=== PATIENT | female | born 1985 | race Caucasian/White ===

== ENCOUNTER 2016-12-26 16:11 | Emergency (ER) | payer SELFPAY ==
[~2016-12-26] VITALS: Ht 170.2 cm; Wt 68.1 kg
[~2016-12-26 16:11] MED LIST: ACHD5005 PO; AMOX500C2 PO; AMOXICILLAN; CLIN-62 PO; CODE-54 PO; DCS100C PO; FERR-57 PO; FERROUS SULFATE; FRS325T PO; HCA25SU PR; HYDR-757 PO; HYDR1CAP2 PO; HYDR1TAB66 PO; HYDR1TAB8 OP; HYDR30SU3 RC; IBP600T1 PO; IBUP-15 PO; IBUP-1773 PO; LEVO500T69 PO; METR500T PO; NAPR-243 PO; OXC5T PO; PNV1CAPS13 PO; PRD20T PO; PREN1TAB71 PO; PRENATAL; SULF1TAB38 PO; TMSL.4C PO
[2016-12-26] MEDS ORDERED: TETANUS,DIPTH,PERTUSS P/F (BOOSTRIX) 0.5 ML VIAL IM ONE (17:15)
[2016-12-26] MEDS ORDERED: MUPI15CR TP (17:15)
[2016-12-26] MEDS ORDERED: SULF1TAB35 PO (17:15)
[2016-12-26] MEDS ORDERED: PRD10T PO (17:15)
--- NOTE | 2016-12-26 17:15 | ED Integumentary General ---
General Chief Complaint: Bite-Animal/Human/Insect Stated Complaint: SPIDER BITE Nursing Triage Note: c/o spider bite to R foot, 2 days ago Source: patient History of Present Illness Time seen by provider: 17:07 Initial Comments PT THINKS SHE WAS BITTEN/STUNG BY SOMETHING ON HER RIGHT FOOT 2 DAYS AGO STATES SHE JUST MOVED INTO A NEW HOUSE, MOVING BOXES, ETC. STATES SHE DID NOT SEE OR FEEL ANYTHING BITE HER, BUT NOTICED A PIMPLE ON HER FOOT BETWEEN HER FIRST AND SECOND TOES AND POPPED IT SINCE THEN SHE HAS HAD INCREASED PAIN REDNESS AND SWELLING TO RIGHT FOOT NO DRAINAGE NO KNOWN INJURY NO PARESTHESIAS OR MOTOR DEFICITS NO FEVER NO HISTORY OF SIMILAR PCP: DR. BEARDEN Allergies and Home Medications Allergies Coded Allergies: No Known Drug Allergies (Verified , 04/03/09) Home Medications Mupirocin Calcium 15 Gm Cream..g., 15 GM TP BID, #22 Prescribed by: ALICJA CASTANEDA on 12/26/165 Prednisone 10 Mg Tab, 40 MG PO DAILY, #12 Prescribed by: ALICJA CASTANEDA on 12/26/165 Sulfamethoxazole/Trimethoprim 1 Each Tablet, 1 EACH PO BID, #20 Prescribed by: ALICJA CASTANEDA on 12/26/165 Constitutional: no symptoms reported EENTM: no symptoms reported Respiratory: no symptoms reported Cardiovascular: no symptoms reported Gastrointestinal: no symptoms reported Genitourinary: no symptoms reported Musculoskeletal: see HPI Skin: see HPI Psychiatric/Neurological: No Symptoms Reported Endocrine: No Symptoms Reported Hematologic/Lymphatic: No Symptoms Reported Past Qeqzgvj-Auvftm-Arwgwv Hx Patient Social History Alcohol Use: Denies Use Recreational Drug Use: Yes (HX METH/MARIJUANA ) Smoking Status: Current Everyday Smoker Type Used: Cigarettes Recent Foreign Travel: No Contact w/Someone Who Travel: No Recent Infectious Disease Expo: No Recent Hopitalizations: No Immunizations Up To Date Tetanus Booster (TDap): Less than 5yrs PED Vaccines UTD: No Seasonal Allergies Seasonal Allergies: No Surgeries HX Surgeries: Yes (rectal abscess) Surgeries: Rectal Respiratory Hx Respiratory Disorders: Yes Respiratory Disorders: Pneumonia Cardiovascular Hx Cardiac Disorders: No Neurological Hx Neurological Disorders: Yes (CONCUSSION AT 5YRS) Neurological Disorders: Concussion Reproductive System Hx Reproductive Disorders: No Sexually Transmitted Disease: No HIV/AIDS: No Female Reproductive Disorders: Denies Genitourinary Hx Genitourinary Disorders: Yes (KIDNEY STONE 12/2011) Genitourinary Disorders: Kidney Stones Gastrointestinal Hx Gastrointestinal Disorders: No Musculoskeletal Hx Musculoskeletal Disorders: Yes (PELVIC AT 16YRS) Musculoskeletal Disorders: Fractures Endocrine Hx Endocrine Disorders: No HEENT HX ENT Disorders: No Loss of Vision: Denies Hearing Impairment: Denies Cancer Hx Cancer: No Psychosocial Hx Psychiatric Problems: No Integumentary HX Skin/Integumentary Disorder: No Blood Transfusions Hx Blood Disorders: No Adverse Reaction to a Blood Tr: No Physical Exam Vital Signs Capillary Refill : Less Than 3 Seconds General Appearance: WD/WN, no apparent distress Extremities: normal range of motion, other (RIGHT FOOT WITH BLISTER BETWEEN FIRST AND SECOND TOES, WITH SURROUNDING ERYTHEMA, INDURATION AND TENDERNESS TO MID FOOT. NO DRAINAGE. 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 ) Progress/Results/Core Measures Results/Orders My Orders Orders - ALICJA CASTANEDA DO Dipht,Pertuss(Acell),Tet Adult (Boostrix (12/26/16 17:15) Vaccine Administration Single (12/26/16 ) Vital Signs/I&O Blood Pressure Mean: 80 Departure Impression Impression: Primary Impression: Cellulitis of right foot Additional Impression: Ephxgithfa-tmpyonneb-vhqdcze (DPT) vaccination administered at current visit Disposition: 01 HOME, SELF-CARE Condition: Stable Departure-Patient Inst. Referrals: ADRIANA BEARDEN DO (PCP) Primary Care Physician Patient Instructions: Cellulitis (Skin Infection), Adult (DC), Diphtheria and Tetanus Toxoids, and Acellular Pertussis Vaccine, Methicillin-Resistant Staphylococcus aureus (MRSA) Add. Discharge Instructions: SOAK IN WARM EPSOM SALTS OR WARM SOAPY WATER 2-3 TIMES A DAY, THEN APPLY ICE TO AREA AT 20 MINUTE INTERVALS ELEVATE FOOT MUCH POSSIBLE FOLLOW UP WITH YOUR DR IN 2-3 DAYS RETURN TO ER IF WORSE All discharge instructions reviewed with patient and/or family. Voiced understanding. Scripts Prednisone (Prednisone) 10 Mg Tab 40 MG PO DAILY, #12 TAB Prov: ALICJA CASTANEDA DO 12/26/16 Mupirocin Calcium (Bactroban) 15 Gm Cream..g. 15 GM TP BID, #22 TUBE Prov: ALICJA CASTANEDA DO 12/26/16 Sulfamethoxazole/Trimethoprim (Bactrim Ds Tablet) 1 Each Tablet 1 EACH PO BID, #20 TAB Prov: ALICJA CASTANEDA DO 12/26/16 ALICJA CASTANEDA DO Dec 26, 2016 17:15
[2016-12-26 17:19] VITALS: BP 108/66
--- OUTSIDE RECORDS SUMMARY | 2016-12-29 09:48 | XMS REPORT | Continuity of Care Document ---
Author Author [facility] Organization [facility] Address Unknown Phone Unavailable Allergies Active Description Code Type Severity Reaction Onset Reported/Identified Relationship to Patient Clinical Status Yes No Known Drug Allergies [id number] Drug Allergy Unknown N/ A 04/03/2009 Medications Problems Date Dx Coded Attending Type Code Diagnosis Diagnosed By 12/27/2011 Ot 590.80 PYELONEPHRITIS NOS 12/27/2011 Ot 789.09 ABDOMINAL PAIN, OTHER SPECIFIED SITE 06/09/2012 Ot 640.03 THREATEN ABORT-ANTEPART 11/08/2012 YOLETTE LOWE, JOSÉ MANUEL Kelly Ot 455.3 EXT HEMORRHOID W/O COMPL 11/08/2012 YOLETTE LOWE, JOSÉ MANUEL Kelly Ot 671.83 VENOUS COMPL NEC-ANTEPAR 11/13/2012 TIANA LOWE, JUDY Meredith Ot 566 ANAL RECTAL ABSCESS 11/13/2012 TIANA LOWE, JUDY Meredith Ot 646.83 PREG COMPL NEC-ANTEPART 01/11/2013 JAMESON MACEDO DO Ot 649.01 TOBACCO USE DISORDER COMP PREG/CHILDBIRT 01/11/2013 JAMESON MACEDO DO Ot V27.0 DELIVER-SINGLE LIVEBORN 09/30/2013 WAYNE REIS CLOCK ASSEMBLER Ot 724.4 LUMBOSACRAL NEURITIS NOS 09/30/2013 WAYNE REIS CLOCK ASSEMBLER Ot 845.00 SPRAIN OF ANKLE NOS 09/30/2013 WAYNE REIS CLOCK ASSEMBLER Ot 959.7 LOWER LEG INJURY NOS 09/30/2013 WAYNE REIS CLOCK ASSEMBLER Ot E000.8 OTHER EXTERNAL CAUSE STATUS 09/30/2013 WAYNE REIS CLOCK ASSEMBLER Ot E927.0 OVEREXERTION FROM SUDDEN STRENUOUS MOVEM 11/21/2013 ADRIANA BEARDEN DO Ot 724.2 LUMBAGO 11/21/2013 ADRIANA BEARDEN DO Ot 729.2 NEURALGIA/NEURITIS NOS 11/21/2013 ADRIANA BEARDEN DO Ot V57.1 PHYSICAL THERAPY NEC Procedures Code Description Performed By Performed On 49.01 INCIS PERIANAL ABSCESS 11/11/2012 73.4 MEDICAL INDUCTION LABOR 01/10/2013 73.6 EPISIOTOMY 2012 Results Encounters ACCT No. Visit Date/Time Discharge Status Pt. Type Provider Facility Loc./Unit Complaint [id number] 12/26/2016 16:14:00 2016 17:18:00 DIS Emergency LEONEL DO ALICJA K [facility] ER SPIDER BITE [id number] 11/03/2013 09:30:00 2013 14:39:00 DIS Outpatient ADRIANA BEARDEN DO [facility] REHAB LOW BACK PAIN L LEG RADICULOPATHY [id number] 09/30/2013 10:14:00 2013 11:12:00 DIS Emergency WAYNE REIS CLOCK ASSEMBLER [facility] ER L ANKLE PAIN [id number] 01/10/2013 06:12:00 2012 16:40:00 DIS Inpatient JAMESON MACEDO DO [facility] WS INDUCTION [id number] 11/11/2012 13:49:00 2012 20:05:00 DIS Inpatient TIANA LOWE, JUDY Meredith [facility] SURGICAL RECTAL ABSCESS [id number] 11/08/2012 06:20:00 2012 08:11:00 DIS Emergency YOLETTE LOWE, JOSÉ MANUEL Kelyl [facility] ER INTERNAL EXTERNAL HEMORRHOIDS/6MTHS PREG [id number] 12/26/2016 16:14:00 Document Registration [id number] 06/09/2012 15:49:00 Document Registration [id number] 12/27/2011 07:47:00 Document Registration
== END 2016-12-26 17:18 | disposition home or self-care (01) ==
LOC: EDUNIT# 16:11 → ER 16:14
DX: Z23 Encounter for immunization; F17.210 Nicotine dependence, cigarettes, uncomplicated; S90.861A Insect bite (nonvenomous), right foot, initial encounter; W57.XXXA Bitten or stung by nonvenomous insect and other nonvenomous arthropods, initial encounter; L03.115 Cellulitis of right lower limb
CPT/HCPCS: 90471; 90715; 99284

== ENCOUNTER → 2017-12-21 | Outpatient (CLI) | payer MEDICAID ==
[~2017-12-21] MED LIST changes: +MUPI15CR TP; +PRD10T PO; +SULF1TAB35 PO
--- NOTE | 2017-12-21 13:32 | Diagnostic Imaging Report ---
INDICATION: 20 weeks gestation of . TECHNIQUE: Multiple real-time grayscale images were obtained over the gravid uterus. COMPARISON: There are no prior studies available for comparison. FINDINGS: There is single live fetus in breech presentation. heart motion was noted and a rate of 143 BPM was recorded. There were no abnormalities identified but the spine was not well imaged due to lie. I would recommend that a short-term (2-4 weeks) followup exam be performed for further study. The growth parameters are fairly uniform. The placenta is anterior and there is no previa. The amniotic fluid volume is within normal limits. The cervix was visualized and measures 3.4 cm in length. IMPRESSION: 1. There is a single live fetus at approximately 22 weeks 1 day gestation +/-2 weeks. The EDC is April 25, 2018. 2. There were no abnormalities identified. However, the spine was not well visualized. Recommendations as above. 3. The growth parameters are fairly uniform. Biometrical measurements are as follows: Biparietal 5.3 cm, age 22 weeks 1 days. Head circumference 19.8 cm, age 22 weeks 1 days. Abdominal circumference 16.4 cm, age 21 weeks 4 days. Femur length 3.8 cm, age 22 weeks 2 days. Sonographic estimate age: 22 weeks 1 days. Sonographic estimated date of delivery: 04/25/18. Estimated Weight: 453 gm (+/- 66 gm). LMP percentile: 49%. heart rate: 143 beats per minute. number: 1 of 1. Dictated by: Dictated on workstation # [id number]
== END ==
LOC: RAD 11:53
PROVIDERS: ATTEND Obstetrics & Gynecology
DX: Z34.92 Encounter for supervision of normal pregnancy, unspecified, second trimester (principal); Z3A.20 20 weeks gestation of pregnancy
CPT/HCPCS: 76805

== ENCOUNTER 2018-04-07 13:59 | Inpatient (IN) | payer MEDICAID ==
[~2018-04-07] VITALS: Ht 170.2 cm; Wt 81.6 kg
--- OUTSIDE RECORDS SUMMARY | 2018-04-07 14:05 | XMS REPORT | Continuity of Care Document ---
Author Author [facility] Organization [facility] Address Unknown Phone Unavailable Care Team Providers Care Cassandra Developer Name Role Phone ADRIANA BEARDEN DO PP Insurance Providers Payer Name Policy Number Subscriber Name Relationship [facility] [id number] Salma Ho 01 Self / Same As Patient Advance Directives Directive Response Recorded Date Advance Directives N 11/11/12 8:41pm Health Care Power of Filling Carrier N 11/11/12 8:41pm Organ Donor Y 11/11/12 8:41pm Problems No Known Problems or Medical conditions. Family History History Response Recorded Date/Time Hx Family Cancer N MATERNAL LUNG,KIDNEYS, ESOPHAGEAL,LIVER, SKIN, COLON 11/11/12 8:47pm Hx Family Lung Cancer Y 11/11/12 8:47pm Hx Family Colorectal Cancer Y 11/11/12 8: 47pm Social History History Response Recorded Date/Time Alcohol Use Denies Use 11/11/12 8:51pm Recreational Drug Use N 11/11/12 8:51pm Recent Foreign Travel N 11/11/12 8:51pm Recent Infectious Disease Exposure N 8:51pm Hospitalization with Isolation Denies 9:05pm Allergies, Adverse Reactions, Alerts Allergen Type Severity Reaction Last Updated No Known Drug Allergies 04/03/09 Medications Medication Dose Units Route Sig Qty Days Oxycodone HCl (Oxyir) 5 Mg PO Q4H PRN 30 Metronidazole (Flagyl 500 Mg) 500 Mg PO TID 7 Clindamycin HCl (Cleocin Cap) 150 Mg PO TID 7 Ferrous Sulfate 325 Mg PO DAILY Hydrocortisone Acetate (Anusol-Hc Supp) 25 Mg PA BID Docusate Sodium (Colace) 200 Mg PO DAILY PRN Pnv Comb.no58/Iron Bisgly/Fa ( Capsule) 1 Cap PO DAILY Hydrocodone Bit/Acetaminophen (Hydrocodon-Acetaminophen 5-500) 5 - 500 Mg PO Q6H PRN Amoxicillin 500 Mg PO TID Docusate Sodium (Colace) 100 Mg PO BID 60 Acetaminophen/Hydrocodone Bitart (Hydrocodone-Apap 5-500 Cap) 1 Each PO Q6HR PRN 8 [Ferrous Sulfate] [Amoxicillan] [] Hydrocodone Bitartrate/Ibuprofen (Vicoprofen 200-7.5 Mg Tab) 1 - 2 Each OP Q 4 - 6 HRS PRN 20 Levofloxacin (Levaquin 500 Mg) 1 Each PO DAILY 10 Tamsulosin HCl (Flomax) 1 Cap PO DAILY 10 Ibuprofen (Advil) 400 - 800 Mg PO Q4HR PRN Response Recorded Date/Time Status not known Unknown Results Test Date Result Interp. Ref. Range Acetaminophen Screen April 03, 2009 9:00am NEGATIVE - Alanine Aminotransferase (ALT/SGPT) November 11, 2012 1:02pm 35 U/L N 30-65 Albumin November 11, 2012 1:02pm 2.4 G/DL L 3.4-5.0 Alkaline Phosphatase November 11, 2012 1:02pm 186 U/L H 50-136 Amylase Level December 27, 2011 8:17am 43 U/ L N 25-115 Aspartate Amino Transf (AST/SGOT) November 11, 2012 1:02pm 23 U/L N 15-37 BUN/Creatinine Ratio November 11, 2012 1:02pm 12 - Basophils # (Auto) November 11, 2012 1:02pm 0.0 10^3/uL N 0.0-0.1 Basophils (%) (Auto) November 11, 2012 1:02pm 0 % N 0-10 Blood Urea Nitrogen November 11, 2012 1:02pm 7 MG/DL N 7-18 Calcium Level November 11, 2012 1:02pm 7.9 MG /DL L 8.5-10.1 Carbon Dioxide Level November 11, 2012 1:02pm 25 MMOL/L N 21-32 Chloride Level November 11, 2012 1:02pm 103 MMOL/L N 101-110 Creatinine November 11, 2012 1:02pm 0.6 MG/ DL N 0.6-1.3 Eosinophils # (Auto) November 11, 2012 1:02pm 0.2 10^3/uL N 0.0-0.3 Eosinophils (%) (Auto) November 11, 2012 1:02pm 1 % N 0-10 Glucose Level November 11, 2012 1:02pm 84 MG/ DL N 74-106 Hematocrit November 11, 2012 1:02pm 29 % L 35-52 Hemoglobin November 11, 2012 1:02pm 9.9 G/DL L 11.5-16.0 Human Chorionic Gonadotropin, Quant June 09, 2012 4: 35pm [id number] MIU/ML H - 6 Lipase December 27, 2011 8:17am 156 U/L N 73-393 Lymphocytes # (Auto) November 11, 2012 1:02pm 1.5 X 10^3 N 1.0-4.0 Lymphocytes (%) (Auto) November 11, 2012 1:02pm 11 % L 12-44 Mean Corpuscular Hemoglobin November 11, 2012 1:02pm 30 PG N 25-34 Mean Corpuscular Hemoglobin Concent November 11, 2012 1:02pm 34 G/DL N 32-36 Mean Corpuscular Volume November 11, 2012 1:02pm 89 FL N 80-99 Mean Platelet Volume November 11, 2012 1:02pm 8.9 FL N 7.4-10.4 Monocytes # (Auto) November 11, 2012 1:02pm 1.3 X 10^3 H 0.0-1.0 Monocytes (%) (Auto) November 11, 2012 1:02pm 9 % N 0-12 Neutrophils # (Auto) November 11, 2012 1:02pm 10.7 X 10^3 H 1.8-7.8 Neutrophils (%) (Auto) November 11, 2012 1:02pm 78 % H 42-75 Platelet Count November 11, 2012 1:02pm 328 10^3/uL N 130-400 Potassium Level November 11, 2012 1:02pm 3.5 MMOL/L L 3.6-5.0 Red Blood Count November 11, 2012 1:02pm 3.27 10^6/uL L 4.35-5.85 Red Cell Distribution Width November 11, 2012 1:02pm 12.3 % N 10.0-14.5 Sodium Level November 11, 2012 1:02pm 136 MMOL/L N 135-145 Total Bilirubin November 11, 2012 1:02pm 0.2 MG/DL N 0.0-1.0 Total Protein November 11, 2012 1:02pm 6.5 G/ DL N 6.4-8.2 Ur Tricyclic Antidepressants Screen June 09, 2012 4: 30pm NEGATIVE - Urine Amphetamines Screen June 09, 2012 4:30pm NEGATIVE - Urine Bacteria November 08, 2012 7:42am FEW / HPF H - Urine Barbiturates Screen June 09, 2012 4:30pm NEGATIVE - Urine Benzodiazepines Screen June 09, 2012 4:30pm NEGATIVE - Urine Bilirubin November 08, 2012 7:42am NEGATIVE - Urine Casts November 08, 2012 7:42am NONE / LPF - Urine Clarity November 08, 2012 7:42am CLEAR - Urine Cocaine Screen June 09, 2012 4:30pm NEGATIVE - Urine Color November 08, 2012 7:42am YELLOW - Urine Crystals November 08, 2012 7:42am NONE /LPF - Urine Culture Indicated November 08, 2012 7:42am YES - Urine Glucose (UA) November 08, 2012 7:42am NEGATIVE - Urine Ketones November 08, 2012 7:42am NEGATIVE - Urine Leukocyte Esterase November 08, 2012 7:42am 1+ H - Urine Methamphetamines Screen June 09, 2012 4:30pm NEGATIVE - Urine Mucus November 08, 2012 7:42am NEGATIVE /LPF - Urine Nitrite November 08, 2012 7:42am NEGATIVE - Urine Opiates Screen June 09, 2012 4:30pm NEGATIVE - Urine Phencyclidine Screen June 09, 2012 4:30pm NEGATIVE - Urine Test December 27, 2011 7:59am NEGATIVE - Urine Propoxyphene Screen June 09, 2012 4:30pm NEGATIVE - Urine Protein November 08, 2012 7:42am NEGATIVE - Urine RBC November 08, 2012 7:42am NONE /HPF - Urine Specific [place] November 08, 2012 7:42am 1.015 L - Urine Squamous Epithelial Cells November 08, 2012 7:42am 2-5 /HPF - Urine Urobilinogen November 08, 2012 7:42am NORMAL MG/DL - Urine WBC November 08, 2012 7:42am 5-10 /HPF H - Urine pH November 08, 2012 7:42am 6.5 - White Blood Count November 11, 2012 1:02pm 13.6 10^3/uL H 4.3-11.0 Estimat Glomerular Filtration Rate November 11, 2012 1:02pm > 60 - Urine Oxycodone Screen June 09, 2012 4:30pm NEGATIVE - Urine Methadone Screen June 09, 2012 4:30pm NEGATIVE - Urine Cannabinoids Screen June 09, 2012 4:30pm NEGATIVE - Urine Buprenorphine June 09, 2012 4:30pm NEGATIVE - Urine RBC (Auto) November 08, 2012 7:42am NEGATIVE - Procedures Procedure Code Date REPAIR OB LACERATION NEC 75.69 04/03/09 Blood Culture 12/27/11 Urine Culture 11/08/12 Gram Stain 09/13/10 Encounters Encounter Location Date/Time Discharged Inpatient [facility] 1:49pm Registered Emergency Room [facility] 11/08/12 6:20am Departed Emergency Room [facility] 09/06 3:49pm
--- OUTSIDE RECORDS SUMMARY | 2018-04-07 14:05 | XMS REPORT | Continuity of Care Document ---
Author Author [facility] Organization [facility] Address Unknown Phone Unavailable Care Team Providers Care Beauty Sales Advisor Name Role Phone ADRIANA BEARDEN DO PP Insurance Providers Payer Name Policy Number Subscriber Name Relationship [facility] [id number] Salma Ho 01 Self / Same As Patient Advance Directives Directive Response Recorded Date Advance Directives N 01/10/13 6:28am Health Care Power of Internal Medicine Doctor N 11/11/12 8:41pm Organ Donor Y 01/10/13 6:28am Problems No Known Problems or Medical conditions. Family History History Response Recorded Date/Time Hx Family Cancer N MATERNAL LUNG,KIDNEYS, ESOPHAGEAL,LIVER, SKIN, COLON 01/10/13 6:32am Hx Family Lung Cancer Y 01/10/13 6:32am Hx Family Colorectal Cancer Y 01/10/13 6: 32am Hx Family Cardiac Disorders Y MATERNAL AND PATERNAL FAMILIES 01/10/13 6:32am Hx Family Hypertension Y 01/10/13 6:32am Hx Family Myocardial Infarction Y 6:32am Social History History Response Recorded Date/Time Alcohol Use Denies Use 01/11/13 11:17am Recreational Drug Use N 01/11/13 11:17am Recent Foreign Travel N 01/11/13 11:17am Recent Infectious Disease Exposure N 11:17am Hospitalization with Isolation Denies 7:04pm Sexually Transmitted Disease N 01/11/13 11:17am HIV/AIDS N 01/11/13 11:17am Allergies, Adverse Reactions, Alerts Allergen Type Severity Reaction Last Updated No Known Drug Allergies 04/03/09 Medications Medication Dose Units Route Sig Qty Days Acetaminophen/Hydrocodone Bitart (Lorcet 5/325 Mg) 1 Tab PO Q4H PRN 15 Ferrous Sulfate (Feosol Tab) 325 Mg PO DAILY@08 60 Ibuprofen (Motrin) 600 Mg PO Q6H 40 Vit/Fe Fumarate/Fa ( Vitamin Tablet) 1 Each PO DAILY Ferrous Sulfate 325 Mg PO DAILY Oxycodone HCl (Oxyir) 5 Mg PO Q4H PRN 30 Metronidazole (Flagyl 500 Mg) 500 Mg PO TID 7 Clindamycin HCl (Cleocin Cap) 150 Mg PO TID 7 Hydrocortisone Acetate (Anusol-Hc Supp) 25 Mg AL BID Docusate Sodium (Colace) 200 Mg PO [...] 400 - 800 Mg PO Q4HR PRN Immunizations Name Given Type MMR 01/11/13 A DTaP 01/11/13 A Response Recorded Date/Time Status not known Unknown [...] Gonadotropin, Quant June 09, 2012 4: 35pm [id number] MIU/ML H - 6 Lipase December 27, [...] 2012 4:30pm NEGATIVE - Urine Bacteria November 11, 2012 2:09pm FEW / HPF H - Urine Barbiturates Screen June 09, 2012 4:30pm NEGATIVE - Urine Benzodiazepines Screen June 09, 2012 4:30pm NEGATIVE - Urine Bilirubin November 11, 2012 2:09pm NEGATIVE - Urine Casts November 11, 2012 2:09pm NONE / LPF - Urine Clarity November 11, 2012 2:09pm CLEAR - Urine Cocaine Screen June 09, 2012 4:30pm NEGATIVE - Urine Color November 11, 2012 2:09pm YELLOW - Urine Crystals November 11, 2012 2:09pm NONE /LPF - Urine Culture Indicated November 11, 2012 2:09pm NO - Urine Glucose (UA) November 11, 2012 2:09pm NEGATIVE - Urine Ketones November 11, 2012 2:09pm 3+ H - Urine Leukocyte Esterase November 11, 2012 2:09pm 1+ H - Urine Methamphetamines Screen June 09, 2012 4:30pm NEGATIVE - Urine Mucus November 11, 2012 2:09pm NEGATIVE /LPF - Urine Nitrite November 11, 2012 2:09pm NEGATIVE - Urine Opiates Screen June 09, 2012 4:30pm NEGATIVE - Urine Phencyclidine Screen June 09, 2012 4:30pm NEGATIVE - Urine Test December 27, 2011 7:59am NEGATIVE - Urine Propoxyphene Screen June 09, 2012 4:30pm NEGATIVE - Urine Protein November 11, 2012 2:09pm NEGATIVE - Urine RBC November 11, 2012 2:09pm NONE /HPF - Urine Specific [place] November 11, 2012 2:09pm 1.015 L - Urine Squamous Epithelial Cells November 11, 2012 2:09pm >50 /HPF H - Urine Urobilinogen November 11, 2012 2:09pm NORMAL MG/DL - Urine WBC November 11, 2012 2:09pm 10-25 / HPF H - Urine pH November 11, 2012 2:09pm 6.5 - White Blood Count November 11, 2012 1:02pm 13.6 10^3/uL H 4.3-11.0 Estimat Glomerular Filtration Rate November 11, 2012 1:02pm > 60 - Urine Oxycodone Screen June 09, 2012 4:30pm NEGATIVE - Urine Methadone Screen June 09, 2012 4:30pm NEGATIVE - Urine Cannabinoids Screen June 09, 2012 4:30pm NEGATIVE - Urine Buprenorphine June 09, 2012 4:30pm NEGATIVE - Urine RBC (Auto) November 11, 2012 2:09pm NEGATIVE - Procedures Procedure Code Date REPAIR OB LACERATION NEC 75.69 04/03/09 INCIS PERIANAL ABSCESS 49.01 11/11/12 Blood Culture 12/27/11 MRSA Screen 11/11/12 Urine Culture 11/08/12 Gram Stain 11/11/12 Encounters Encounter Location Date/Time Admitted Inpatient [facility] 6:12am Discharged Inpatient [facility] 1:49pm Registered Emergency Room [facility] 11/08/12 6:20am Departed Emergency Room [facility] 09/06 3:49pm
--- OUTSIDE RECORDS SUMMARY | 2018-04-07 14:05 | XMS REPORT | Continuity of Care Document ---
Author Author [facility] Organization [facility] Address Unknown Phone Unavailable Care Team Providers Care Transmission Line Engineer Name Role Phone ADRIANA BEARDEN DO PP Insurance Providers Payer Name Policy Number Subscriber Name Relationship [facility] [id number] Salma Ho 01 Self / Same As Patient Advance Directives Directive Response Recorded Date Advance Directives N 01/10/13 6:28am Health Care Power of Supply Chain Consultant N 11/11/12 8:41pm Organ Donor Y 01/10/13 [...] 7 Hydrocortisone Acetate (Anusol-Hc Supp) 25 Mg SC BID Docusate Sodium (Colace) 200 Mg PO [...] Recorded Date/Time Status not known Unknown Results No Known Relevant Diagnostic Tests, Laboratory Data and/or Discharge Summary. Procedures Procedure Code Date REPAIR OB LACERATION NEC 75.69 04/03/09 INCIS PERIANAL ABSCESS 49.01 11/11/12 EPISIOTOMY 73.6 01/10/13 MEDICAL INDUCTION LABOR 73.4 01/10/13 Encounters Encounter Location Date/Time Discharged Inpatient [facility] 6:12am Departed Emergency Room [facility] 6:20am
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
[2018-04-07 14:27] LABS: MEAN PLATELET VOLUME 10.1 FL (7.4-10.4); RED BLOOD COUNT 3.94 10^6/uL (4.35-5.85); RED CELL DISTRIBUTION WIDTH 13.3 % (10.0-14.5); WHITE BLOOD COUNT 8.8 10^3/uL (4.3-11.0)
[2018-04-07] MEDS ORDERED: fentaNYL INJECTION 100 MCG/2 ML AMP ONE ×3 (14:58→17:46)
[2018-04-07] MEDS ORDERED: CATHETER FLUSH 10 ML SYR IV PRN ×2 (15:00→17:00)
[2018-04-07] MEDS ORDERED: fentaNYL INJECTION 100 MCG/2 ML AMP IVP ONE ×2 (15:00→18:15)
[2018-04-07] MEDS ORDERED: IOHEXOL 350 MG/ML 100 ML (OMNIPAQUE 350) VIAL IV ONE (15:00)
[2018-04-07] MEDS ORDERED: NS 250 ML (IVPB) BAG IV ONE (15:00)
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
[2018-04-07 15:02] LABS: ALANINE AMINOTRANSFERASE 18 U/L (0-55); ALKALINE PHOSPHATASE 243 U/L (40-136); BILIRUBIN,DIRECT 0.1 MG/DL (0.0-0.3); BILIRUBIN,INDIRECT 0.3 MG/DL; BILIRUBIN,TOTAL 0.4 MG/DL (0.1-1.0); BUN/CREATININE RATIO 11; CALCIUM 8.9 MG/DL (8.5-10.1); CARBON DIOXIDE 17 MMOL/L (21-32); CHLORIDE 107 MMOL/L (98-107); CREATININE SERUM 0.71 MG/DL (0.60-1.30); GFR ESTIMATED > 60; GLUCOSE 106 MG/DL (70-105); SODIUM 136 MMOL/L (135-145)
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
[2018-04-07 15:11] LABS: POTASSIUM 4.4 MMOL/L (3.6-5.0)
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
[2018-04-07 15:18] VITALS: BP 139/78
[2018-04-07 15:26] LABS: ALBUMIN 3.6 GM/DL (3.2-4.5)
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
[2018-04-07 15:40] VITALS: BP 136/83
[2018-04-07 15:46] LABS: BILIRUBIN,URINE NEGATIVE (NEGATIVE); CLARITY,URINE SLIGHTLY CLOUDY; COLOR,URINE YELLOW; GLUCOSE, URINE (UA) NEGATIVE (NEGATIVE); KETONES,URINE NEGATIVE (NEGATIVE); LEUKOCYTE ESTERASE ,URINE NEGATIVE (NEGATIVE); NITRITE,URINE NEGATIVE (NEGATIVE); PH,URINE 7 (5-9); PROTEIN,URINE 3+ (NEGATIVE); UROBILINOGEN,URINE NORMAL (NORMAL)
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
[2018-04-07 15:53] LABS: BACTERIA,URINE TRACE /HPF; RBC,URINE >100 /HPF; SQUAMOUS EPITHELIAL CELL,UR 0-2 /HPF
[2018-04-07] MEDS ORDERED: NS IV 1000 ML 1,000 ML IV SCH (15:56)
[2018-04-07] MEDS ORDERED: NS IV 1000 ML 2,449.41 ML IV ONE (16:00)
[2018-04-07] MEDS ORDERED: ceFAZolin 2 GM IV Premixed 50 ML ONE (16:00)
[2018-04-07] MEDS ORDERED: CITRIC ACID/SOB CIT (BICITRA) 30 ML UDC ONE (16:00)
[2018-04-07] MEDS ORDERED: FAMOTIDINE 20MG/2ML IV (PEPCID) ONE (16:00)
[2018-04-07] MEDS ORDERED: METOCLOPRAMIDE INJ 10 MG/2 ML (REGLAN) ONE (16:00)
[2018-04-07 16:04] VITALS: BP 134/71
[2018-04-07] MEDS ORDERED: SEVOFLURANE (ULTANE) 15 ML INHAL SOLN ONE ×5 (16:18→17:58)
[2018-04-07] MEDS ORDERED: proPOfol 200 MG/20 ML (DIPRIVAN) VIAL IV ONE ×2 (16:18→17:18)
[2018-04-07] MEDS ORDERED: LIDOCAINE PF 2% 5 ML (XYLOCAINE) VIAL ONE (16:18)
[2018-04-07] MEDS ORDERED: SUCCINYLCHOLINE INJ 100 MG/5 ML SYR ONE (16:18)
[2018-04-07] MEDS ORDERED: D5 LR IV SOLUTION 1,000 ML IV SCH ×2 (16:55→17:29)
[2018-04-07] MEDS ORDERED: LACTATED RINGERS 1,000 ML IV PRN (16:59)
[2018-04-07] MEDS ORDERED: METOCLOPRAMIDE INJ 10 MG/2 ML (REGLAN) IV ONE (17:00)
[2018-04-07] MEDS ORDERED: CITRIC ACID/SOB CIT (BICITRA) 30 ML UDC PO ONE (17:00)
[2018-04-07] MEDS ORDERED: ROCURONIUM 10 MG/ML 5 ML SYRINGE IV ONE (17:03)
[2018-04-07] MEDS ORDERED: PHENYLEPHRINE 100 MCG/ML 10 ML (ANESTHESIA) SYR ONE (17:03)
[2018-04-07] MEDS ORDERED: ceFAZolin 2 GM IV Premixed 50 ML IV ONE (17:15)
--- NOTE | 2018-04-07 17:28 | Cesarean Section Operative ---
Procedure Procedure Note Pre-operative Diagnosis: Salma Gonzales is a 33 /Para 3 / 2, Gestational Age 37 2/7 weeks, heartrate abnormality, placental abruption Post-operative Diagnosis: same [] Procedure: [low transverse section Physician: JAMESON MACEDO Client Support Analyst: Alona Horton APRN Estimated blood loss: [] mL Disposition: [] Findings: Viable [] , Apgars [], weight [], intact placenta, 3vc, normal appearing uterus, tubes, and ovaries. Indications:Salma Gonzales is a (33 /Para 3 / 2,Gestational Age (wks) presenting for []. Procedure Details: The patient was seen in pre-op and the procedure was discussed with the patient in full, including the risks, benefits, and alternatives. All questions were answered. The patient was taken to the operating room and a time out was performed, verifying patient and procedure. After spinal anesthesia was placed by our anesthesia colleagues, the patient was placed in the dorsal supine with leftward tilt for uterine displacement.~ Her abdomen was then prepped and draped in the typical sterile fashion. A Pfannenstiel skin incision was made using a scalpel and carried down through the underlying fascia. The fascia was incised in the midline and tented up using Thaddeus clamps. On both the inferior and superior fascia side the rectus muscle was dissected off bluntly and sharply using Mariano scissors. The peritoneum was identified and entered bluntly in the midline. This was then stretched laterally using manual strength. After entering the abdominal cavity and confirming lack of intraperitoneal adhesions, a large Sumit retractor was placed and the lower uterine segment was visualized. A bladder flap was created with the use of Metzenbaum scissors.~ A scalpel was utilized to make a low transverse uterine incision. Amniotomy was performed with an Allis clamp with return of clear fluid. The infant's head was grasped and brought to the level of the incision. Fundal pressure was applied and infant was delivered without difficulty. Mouth and nares were suctioned with bulb suction. After the umbilical cord was clamped and cut, the infant was handed off to the pediatric staff. A sample of cord blood was then obtained. The placenta was delivered intact via uterine massage. The uterus was exteriorized and cleared of all clots and debris. The uterine incision was closed using 0 Vicryl in a running locked fashion. A second imbricated layer was placed using 0 Vicryl in a running fashion as well. The uterus was flexed forward and the posterior rectouterine space was inspected and cleared of all clots and debris. Again the hysterotomy site was examined and hemostasis was observed. The bilateral tubes and ovaries appeared normal. The uterus was placed back into the abdominal cavity and abdominal gutters were cleared of all clots and debris. A final check of the uterine incision showed it to be hemostatic. The peritoneum was closed using 3-0 Vicryl in a running fashion. The fascia was closed with 0 Vicryl in a running fashion. The subcutaneous space was hemostatic, and irrigated. The subcutaneous space was closed with 3-0 Vicryl in several single interrupted stitches. The skin was then closed using 4- 0 Monocryl in a running subcuticular fashion. The skin edges were reapproximated together and were hemostatic. A pressure dressing was applied. All sponge, lap and needle counts were correct at the end of the procedure per nursing. Vitals - Labs Vital Signs - I&O Vital Signs Date Time Temp Pulse Resp B/P (MAP) Pulse Ox O2 Delivery O2 Flow Rate FiO2 04/07/18 15:10 85 16 134/96 (109) 98 Non Rebreather 10.00 Labs Laboratory Tests 04/07/18 14:04: White Blood Count 8.8, Red Blood Count 3.94L, Hemoglobin 12.0, Hematocrit 35, Mean Corpuscular Volume 89, Mean Corpuscular Hemoglobin 30, Mean Corpuscular Hemoglobin Concent 34, Red Cell Distribution Width 13.3, Platelet Count 282, Mean Platelet Volume 10.1, Sodium Level 136, Potassium Level 4.4, Chloride Level 107, Carbon Dioxide Level 17L, Anion Gap 12, Blood Urea Nitrogen 8, Creatinine 0.71, Estimat Glomerular Filtration Rate > 60, BUN/Creatinine Ratio 11, Glucose Level 106H, Calcium Level 8.9, Total Bilirubin 0.4, Direct Bilirubin 0.1, Indirect Bilirubin 0.3, Aspartate Amino Transf (AST/SGOT) 35H, Alanine Aminotransferase (ALT/SGPT) 18, Alkaline Phosphatase 243H, Total Protein 7.0, Albumin 3.6, Serum Alcohol < 10 04/07/18 15:30: Urine Color YELLOW, Urine Clarity SLIGHTLY CLOUDY, Urine pH 7, Urine Specific [place] 1.005L, Urine Protein 3+H, Urine Glucose (UA) NEGATIVE, Urine Ketones NEGATIVE, Urine Nitrite NEGATIVE, Urine Bilirubin NEGATIVE, Urine Urobilinogen NORMAL, Urine Leukocyte Esterase NEGATIVE, Urine RBC (Auto) 5+H, Urine RBC >100H , Urine WBC NONE, Urine Squamous Epithelial Cells 0-2, Urine Crystals NONE, Urine Bacteria TRACE, Urine Casts NONE, Urine Mucus NEGATIVE, Urine Culture Indicated NO JAMESON MACEDO DO Apr 07, 2018 17:28
[2018-04-07] MEDS ORDERED: OXYTOCIN/NORMAL SALINE 500 ML IV SCH (17:29)
[2018-04-07] MEDS ORDERED: MEASLES,MUMPS,RUBELLA 1 EA INJ SC SCH (17:30)
[2018-04-07] MEDS ORDERED: HYDROmorphone 2 MG/ML VIAL (DILAUDID) IV PRN (17:30)
[2018-04-07] MEDS ORDERED: ONDANSETRON 4 MG/2 ML (SDV) Z0FRAN IVP PRN ×2 (17:30→18:15)
[2018-04-07] MEDS ORDERED: TETANUS,DIPTH,PERTUSS P/F (BOOSTRIX) 0.5 ML VIAL IM SCH (17:30)
[2018-04-07] MEDS ORDERED: morphine INJ 10 MG/ML 1ML (SYR OR VIAL) ONE (17:35)
--- NOTE | 2018-04-07 17:51 | Diagnostic Imaging Report ---
INDICATION: Postop. Sponge count check. EXAMINATION: A supine view of the abdomen was obtained. FINDINGS: Bowel gas pattern is within normal limits. There is contrast in the urinary collecting system. There is no unsuspected foreign body. IMPRESSION: Satisfactory postoperative abdomen. Dictated by: Dictated on workstation # [id number]
[2018-04-07] MEDS ORDERED: ONDANSETRON 4 MG/2 ML (SDV) Z0FRAN ONE (17:59)
[2018-04-07] MEDS ORDERED: morphine INJ 10 MG/ML 1ML (SYR OR VIAL) IVP ONE (18:15)
[2018-04-07] MEDS ORDERED: FLU QUADRIvalent (5+ YOA) 2018-2019 (AFLURIA) 0.5 ML IM ONE (18:30)
[2018-04-07 19:43] VITALS: BP 116/72
[2018-04-07 20:29] LABS: AMPHETAMINE SCREEN, URINE NEGATIVE (NEGATIVE); BARBITURATE SCREEN URINE NEGATIVE (NEGATIVE); BENZODIAZEPINES SCREEN URINE NEGATIVE (NEGATIVE); CANNABINOID SCREEN, URINE NEGATIVE (NEGATIVE); COCAINE SCREEN URINE NEGATIVE (NEGATIVE); METHADONE STAT NEGATIVE (NEGATIVE); METHAMPHETAMINE SCREEN URINE S NEGATIVE (NEGATIVE); OPIATE SCREEN URINE NEGATIVE (NEGATIVE); OXYCODONE STAT NEGATIVE (NEGATIVE); PROPOXYPHENE STAT NEGATIVE (NEGATIVE); TRICYCLIC ANTIDEPRESSANTS SCRE NEGATIVE (NEGATIVE)
[2018-04-07] MEDS: KETOROLAC 30 MG/ML VIAL IVP SCH (20:33)
[2018-04-07] MEDS ORDERED: DOCUSATE SODIUM 100 MG (COLACE) CAP PO SCH (21:00)
[2018-04-07] MEDS ORDERED: CATHETER FLUSH 10 ML SYR IV SCH ×2 (22:00)
[2018-04-07 23:55] VITALS: BP 128/58
[2018-04-07] MEDS: HYDROcodone/APAP 10 MG/325 MG (LORTAB) TAB PO PRN (23:55)
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
[2018-04-08] MEDS: KETOROLAC 30 MG/ML VIAL IVP SCH ×2 (02:21→07:54)
[2018-04-08 03:50] VITALS: BP 96/54
[2018-04-08 06:25] LABS: BASOPHILS % (AUTO) 0 % (0-10); EOSINOPHILS # (AUTO) 0.2 10^3/uL (0.0-0.3); EOSINOPHILS % (AUTO) 1 % (0-10); HEMATOCRIT 28 % (35-52); HEMOGLOBIN 9.9 G/DL (11.5-16.0); LYMPHOCYTES # (AUTO) 2.1 X 10^3 (1.0-4.0); LYMPHOCYTES % (AUTO) 15 % (12-44); MEAN CORPUSCULAR HEMOGLOBIN 32 PG (25-34); MEAN CORPUSCULAR HGB CONC 36 G/DL (32-36); MEAN CORPUSCULAR VOLUME 90 FL (80-99); MEAN PLATELET VOLUME 9.8 FL (7.4-10.4); MONOCYTES # (AUTO) 1.1 X 10^3 (0.0-1.0); MONOCYTES % (AUTO) 8 % (0-12); NEUTROPHILS # (AUTO) 10.3 X 10^3 (1.8-7.8); NEUTROPHILS % (AUTO) 75 % (42-75); PLATELET COUNT 205 10^3/uL (130-400); RED BLOOD COUNT 3.09 10^6/uL (4.35-5.85); RED CELL DISTRIBUTION WIDTH 12.8 % (10.0-14.5); WHITE BLOOD COUNT 13.7 10^3/uL (4.3-11.0)
[2018-04-08] MEDS ORDERED: IBUPROFEN 600 MG (MOTRIN) TAB PO ONE (07:51)
[2018-04-08] MEDS: HYDROcodone/APAP 10 MG/325 MG (LORTAB) TAB PO PRN ×2 (07:57→12:43)
[2018-04-08] MEDS: IBUPROFEN 600 MG (MOTRIN) TAB PO SCH ×2 (07:57→15:44)
[2018-04-08 08:00] VITALS: BP 108/57
--- NOTE | 2018-04-08 09:27 | Anesthesia-General Post-Op ---
General Patient Condition Mental Status/LOC: Same as Preop Cardiovascular: Satisfactory Nausea/Vomiting: Absent Respiratory: Satisfactory Pain: Controlled Complications: Absent Post Op Complications Complications None Follow Up Care/Instructions Patient Instructions None needed. Anesthesia/Patient Condition Patient Condition Patient is doing well, no complaints, stable vital signs, no apparent adverse anesthesia problems. No complications reported per nursing. DWAYNE NAJERA CRNA Apr 08, 2018 09:26
[2018-04-08 12:30] VITALS: BP 108/58
[2018-04-08] MEDS ORDERED: HYDR-3820 PO (13:07)
[2018-04-08] MEDS ORDERED: DOCU100C37 PO (13:07)
[2018-04-08] MEDS ORDERED: IBUP-1773 PO (13:07)
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
--- NOTE | 2018-04-08 13:20 | History & Physical-OB ---
OB - Chief Complaint & HPI Date/Time Date of Admission: Date of Admission: Apr 07, 2018 at 15:38 History and physical late entry after emergency section Date seen by a Provider: Apr 08, 2018 Time Seen by a Provider: 17:30 Chief Complaint/History Hx : 3 Hx Para: 2 Expected Date of Delivery: Mar 21, 2019 Gestational Age in Weeks: 37 Gestational Age in Days: 2 Allergies and Home Medications Allergies Coded Allergies: No Known Drug Allergies (Verified , 04/03/09) Home Medications Docusate Sodium 100 Mg Capsule, 100 MG PO BID Prescribed by: JAMESON MACEDO on 04/08/18 1307 Hydrocodone/Acetaminophen 1 Each Tablet, 1 EA PO Q6H PRN for PAIN-MODERATE no greater than 3 grams of acetominophen q 24 hours Prescribed by: JAMESON MACEDO on 04/08/18 1307 Ibuprofen 600 Mg Tablet, 600 MG PO Q6H PRN for PAIN Prescribed by: JAMESON MACEDO on 04/08/18 1307 Mupirocin Calcium 15 Gm Cream..g., 15 GM TP BID Prescribed by: ALICJA CASTANEDA on 12/26/161714 Prednisone 10 Mg Tab, 40 MG PO DAILY Prescribed by: ALICJA CASTANEDA on 12/26/161714 Sulfamethoxazole/Trimethoprim 1 Each Tablet, 1 EACH PO BID Prescribed by: ALICJA CASTANEDA on 12/26/161714 OB - History Obstetrical History Hx : 3 Hx Para: 2 Hx Termination: No Hx Total # of Abortions (Spona: 0 Hx Multiple Gestation: No Hx Stillbirth: No Hx Complication: No Hx Induced Hypertens: No Hx Maternal Gestational Diabet: No Delivery History Hx Blood Disorders: No Adverse Rxn to Tranfusion: No Social History/Family History HIV/AIDS: No Recent Infectious Disease Expo: No Sexually Transmitted Disease: No Alcohol Use: Denies Use Recreational Drug Use: Yes (HX METH/MARIJUANA ) Immunizations Hepatitis A: No Hepatitis B: No Tetanus Booster (TDap): Less than 5yrs OB - Admission Exam Physical Exam Vitals: Vital Signs 04/07/18 04/08/18 16:04 08:00 Temp 99.2 Pulse 83 Resp 18 B/P (MAP) 108/57 (74) Pulse Ox 97 O2 Delivery Room Air O2 Flow Rate 10.00 Labs Laboratory Tests Test 04/07/18 14:04 04/07/18 15:30 04/08/18 06:10 Range/Units White Blood Count 8.8 13.7 H 4.3-11.0 10^3/uL Red Blood Count 3.94 L 3.09 L 4.35-5.85 10^6/uL Hemoglobin 12.0 9.9 L 11.5-16.0 G/DL Hematocrit 35 28 L 35-52 % Mean Corpuscular Volume 89 90 80-99 FL Mean Corpuscular Hemoglobin 30 32 25-34 PG Mean Corpuscular Hemoglobin Concent 34 36 32-36 G/DL Red Cell Distribution Width 13.3 12.8 10.0-14.5 % Platelet Count 282 205 130-400 10^3/uL Mean Platelet Volume 10.1 9.8 7.4-10.4 FL Sodium Level 136 135-145 MMOL/L Potassium Level 4.4 3.6-5.0 MMOL/L Chloride Level 107 98-107 MMOL/L Carbon Dioxide Level 17 L 21-32 MMOL/L Anion Gap 12 5-14 MMOL/L Blood Urea Nitrogen 8 7-18 MG/DL Creatinine 0.71 0.60-1.30 MG/DL Estimat Glomerular Filtration Rate > 60 BUN/Creatinine Ratio 11 Glucose Level 106 H 70-105 MG/DL Calcium Level 8.9 8.5-10.1 MG/DL Total Bilirubin 0.4 0.1-1.0 MG/DL Direct Bilirubin 0.1 0.0-0.3 MG/DL Indirect Bilirubin 0.3 MG/DL Aspartate Amino Transf (AST/SGOT) 35 H 5-34 U/L Alanine Aminotransferase (ALT/SGPT) 18 0-55 U/L Alkaline Phosphatase 243 H 40-136 U/L Total Protein 7.0 6.4-8.2 GM/DL Albumin 3.6 3.2-4.5 GM/DL Serum Alcohol < 10 <10 MG/DL Urine Color YELLOW Urine Clarity SLIGHTLY CLOUDY Urine pH 7 5-9 Urine Specific [place] 1.005 L 1.016-1.022 Urine Protein 3+ H NEGATIVE Urine Glucose (UA) NEGATIVE NEGATIVE Urine Ketones NEGATIVE NEGATIVE Urine Nitrite NEGATIVE NEGATIVE Urine Bilirubin NEGATIVE NEGATIVE Urine Urobilinogen NORMAL NORMAL MG/DL Urine Leukocyte Esterase NEGATIVE NEGATIVE Urine RBC (Auto) 5+ H NEGATIVE Urine RBC >100 H /HPF Urine WBC NONE /HPF Urine Squamous Epithelial Cells 0-2 /HPF Urine Crystals NONE /LPF Urine Bacteria TRACE /HPF Urine Casts NONE /LPF Urine Mucus NEGATIVE /LPF Urine Culture Indicated NO Urine Opiates Screen NEGATIVE NEGATIVE Urine Oxycodone Screen NEGATIVE NEGATIVE Urine Methadone Screen NEGATIVE NEGATIVE Urine Propoxyphene Screen NEGATIVE NEGATIVE Urine Barbiturates Screen NEGATIVE NEGATIVE Ur Tricyclic Antidepressants Screen NEGATIVE NEGATIVE Urine Phencyclidine Screen NEGATIVE NEGATIVE Urine Amphetamines Screen NEGATIVE NEGATIVE Urine Methamphetamines Screen NEGATIVE NEGATIVE Urine Benzodiazepines Screen NEGATIVE NEGATIVE Urine Cocaine Screen NEGATIVE NEGATIVE Urine Cannabinoids Screen NEGATIVE NEGATIVE Neutrophils (%) (Auto) 75 42-75 % Lymphocytes (%) (Auto) 15 12-44 % Monocytes (%) (Auto) 8 0-12 % Eosinophils (%) (Auto) 1 0-10 % Basophils (%) (Auto) 0 0-10 % Neutrophils # (Auto) 10.3 H 1.8-7.8 X 10^3 Lymphocytes # (Auto) 2.1 1.0-4.0 X 10^3 Monocytes # (Auto) 1.1 H 0.0-1.0 X 10^3 Eosinophils # (Auto) 0.2 0.0-0.3 10^3/uL Basophils # (Auto) 0.0 0.0-0.1 10^3/uL JAMESON MACEDO DO Apr 08, 2018 13:20
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
[2018-04-08] MEDS ORDERED: NICO-587 TD (14:05)
[2018-04-08] MEDS ORDERED: FERR-84 PO (14:06)
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
[2018-04-08 16:10] VITALS: BP 108/58
== END 2018-04-08 16:10 | disposition home or self-care (01) | DRG 787 ==
LOC: EDUNIT# 13:59 → ER 14:00 → LDRP 15:38
PROVIDERS: ADMIT Obstetrics & Gynecology; ATTEND Obstetrics & Gynecology
PROC: 0KQL0ZZ Repair Left Abdomen Muscle, Open Approach (ICD-10-PCS; 2018-04-07)
PROC: 10D00Z1 Extraction of Products of Conception, Low, Open Approach (ICD-10-PCS; principal; 2018-04-07 16:08)
DX: O9A.213 Injury, poisoning and certain other consequences of external causes complicating pregnancy, third trimester (principal); O45.93 Premature separation of placenta, unspecified, third trimester; O99.03 Anemia complicating the puerperium; D62 Acute posthemorrhagic anemia; O76 Abnormality in fetal heart rate and rhythm complicating labor and delivery; S30.1XXA Contusion of abdominal wall, initial encounter; S39.021A Laceration of muscle, fascia and tendon of abdomen, initial encounter; O99.333 Smoking (tobacco) complicating pregnancy, third trimester; F17.210 Nicotine dependence, cigarettes, uncomplicated; V57.6XXA Passenger in pick-up truck or van injured in collision with fixed or stationary object in traffic accident, initial encounter; Z3A.37 37 weeks gestation of pregnancy; Z37.0 Single live birth
CPT/HCPCS: 29105; 36415; 51702; 70450; 71045; 71260; 72125; 73080; 74018; 74177; 76816; 80048; 80076; 80306; 80320; 81000; 85025; 85027; 86850; 86900; 86901; 86920; 88307; 93041; 94664; 96361; 96374; 99291

== ENCOUNTER → 2019-01-04 | Outpatient (CLI) | payer MEDICAID ==
[~2019-01-04] MED LIST changes: +DOCU100C37 PO; +FERR-84 PO; +HYDR-3820 PO; +NICO-587 TD; +PREN-53 PO
--- NOTE | 2019-01-04 13:39 | Diagnostic Imaging Report ---
INDICATION: survey. TECHNIQUE: Multiple real-time grayscale images were obtained over the gravid uterus. COMPARISON: None FINDINGS: There is a single live fetus in a transverse presentation, head to maternal left. heart rate was recorded 135 beats per minute. Placenta is anterior. Amniotic fluid volume appears normal. survey demonstrates kidneys, bladder and stomach to be unremarkable. brain is unremarkable. There is a four-chambered heart. There is a three-vessel cord with normal insertion. spine is unremarkable. Cervical length is approximately 5.3 cm. Maternal adnexa was not evaluated. Biometrical measurements are as follows: Biparietal 5.03 cm, age 21 weeks 2 days. Head circumference 18.96 cm, age 21 weeks 2 days. Abdominal circumference 15.94 cm, age 21 weeks 1 days. Femur length 3.47 cm, age 21 weeks 0 days. Sonographic estimate age: 21 weeks 2 days. Sonographic estimated date of delivery: 05/15/2019. Estimated Weight: 394 gm (+/- 58 gm). LMP percentile: 46%. heart rate: 135 beats per minute. number: 1 of 1. IMPRESSION: Single live IUP 21 weeks 2 days gestational age. Estimated date of confinement sonographically is 05/15/2019. Dictated by: Dictated on workstation # [id number]
== END ==
LOC: RAD 10:02
PROVIDERS: ATTEND Obstetrics & Gynecology
DX: Z34.92 Encounter for supervision of normal pregnancy, unspecified, second trimester (principal); Z3A.21 21 weeks gestation of pregnancy
CPT/HCPCS: 76805

== ENCOUNTER 2019-01-07 21:50 | Outpatient (CLI) | payer MEDICAID ==
[~2019-01-07] VITALS: Ht 170.2 cm; Wt 79.8 kg
[~2019-01-07 21:50] MED LIST changes: -PREN-53 PO
--- NOTE | 2019-01-07 21:57 | NUR ---
RADHA GIBSON presented to unit via AMBULATORY from ED, accompanied by S/O , with c/o STOMACH CRAMPS; CHEST COLD. RADHA GIBSON weighed, gowned, voided, and to bed. EFHM and TOCO applied, VS taken. RADHA GIBSON oriented to bed controls, call light, TV, heat, and A/C controls.
[2019-01-07 22:00] VITALS: BP 106/56
--- NOTE | 2019-01-07 22:00 | NUR ---
notified of pt's arrival. new orders received.
[2019-01-07] MEDS ORDERED: PREN-53 PO (22:20)
--- NOTE | 2019-01-07 22:30 | NUR ---
Discharge instructions verbalized with pt. pt verbalized understanding. pt dc'd home.
--- NOTE | 2019-01-12 18:34 | Physician Query-Final Dx ---
BELIA LEON 01/12/19 1834: Clinic Account Progress/Dx Physician Query: Please give diagnosis Need dx and weeks of gestation Date of Service Jan 07, 2019 at 21:50 MEG LORD MD 01/12/19 1902: Clinic Account Progress/Dx DIAGNOSIS: Diagnosis 37 weeks with upper respiratory infection BELIA LEON Jan 12, 2019 18:34 MEG LORD MD Jan 12, 2019 19:02
== END 2019-01-07 22:30 | disposition home or self-care (01) ==
LOC: WSo 21:50 → LDRP 21:51 → WSo 22:30
PROVIDERS: ATTEND Obstetrics & Gynecology
DX: O99.513 Diseases of the respiratory system complicating pregnancy, third trimester (principal); J06.9 Acute upper respiratory infection, unspecified; Z3A.37 37 weeks gestation of pregnancy
CPT/HCPCS: 99212